=== PATIENT | male | born 1955 | race Caucasian/White ===

== ENCOUNTER 2020-02-09 14:57 | Inpatient (IN) | payer OTHER ==
[~2020-02-09] VITALS: Ht 172.7 cm; Wt 95.5 kg
[2020-02-09 15:10] LABS: Calcium, Ionized (POC) 0.84 mmol/L (1.10-1.46); Chloride (POC) 107 mmol/L (98-108); Creatinine (POC) 1.6 mg/dL (0.8-1.3); Glucose (ISTAT POC) 40 mg/dL (70-99); Hemoglobin (POC) 11.6 g/dL (13.5-17.5); Sodium (POC) 140 mmol/L (135-148); Total CO2 (POC) 11 mmol/L (21-32)
[2020-02-09 15:19] LABS: BASOPHILS ABSOLUTE AUTO 0.05 K/mm3 (0.00-0.23); BASOPHILS PERCENT AUTO 0 % (0-2); EOSINOPHILS ABSOLUTE AUTO 0.02 K/mm3 (0.00-0.68); EOSINOPHILS PERCENT AUTO 0 % (0-6); Hematocrit 32.3 % (37.0-53.0); Hemoglobin 10.4 g/dL (13.5-17.5); IMMATURE GRAN ABSOLUTE AUTO 0.23 K/mm3 (0.00-0.10); IMMATURE GRAN PERCENT AUTO 1 % (0-1); LYMPHOCYTES ABSOLUTE AUTO 0.98 K/mm3 (0.84-5.20); LYMPHOCYTES PERCENT AUTO 5 % (21-46); MONOCYTES ABSOLUTE AUTO 1.44 K/mm3 (0.16-1.47); MONOCYTES PERCENT AUTO 8 % (4-13); Mean Corpuscular HGB 35.4 pg (26.0-34.0); Mean Corpuscular HGB Conc 32.2 g/dL (31.5-36.5); Mean Corpuscular Volume 110 fL (80-100); NEUTROPHILS ABSOLUTE AUTO 15.77 K/mm3 (1.96-9.15); NEUTROPHILS PERCENT AUTO 85 % (41-73); NRBC ABSOLUTE 0.02 K/mm3 (0.00-0.02); NRBC Auto 0.1 /100 WBC (0.0-0.2); Platelet Count 161 K/mm3 (150-400); RDW Standard Deviation 75.4 fL (35.1-46.3); Red Blood Cell Count 2.94 M/mm3 (4.30-5.90); White Blood Cell Count 18.49 K/mm3 (4.00-11.30)
[2020-02-09 15:32] LABS: International Normalized Ratio 3.31; Prothrombin Time Results 33.1 Sec (9.7-11.5)
[2020-02-09 15:38] LABS: Ethanol (Alcohol), Blood, Med <3 mg/dL
[2020-02-09 15:40] LABS: Alanine Aminotransfer (ALT/SGP 173 U/L (12-78); Albumin, Blood 1.5 g/dL (3.4-5.0); Albumin/Globulin Ratio 0.4 (0.8-1.8); Alk Phos 207 U/L (50-136); Anion Gap 23 mmol/L (6-16); Bilirubin, Total 10.5 mg/dL (0.1-1.0); Blood Urea Nitrogen 47 mg/dL (8-24); Bun/Creatinine Ratio 33.1 (12.0-20.0); CO2, Blood 13 mmol/L (21-32); Calcium, Blood 8.1 mg/dL (8.5-10.1); Chloride, Blood 107 mmol/L (98-108); Creatinine, Blood 1.42 mg/dL (0.60-1.20); Globulin, Blood 3.8 g/dL (2.2-4.0); Glomerular Filtration Rate 47 (60-); Sodium, Blood 143 mmol/L (136-145); Total Protein, Blood 5.3 g/dL (6.4-8.2)
[2020-02-09 15:42] LABS: Glucose, Blood 43 mg/dL (70-99)
[2020-02-09 15:56] LABS: Aspartate Aminotrans (AST/SGOT 407 U/L (12-37)
[2020-02-09 15:58] LABS: Source, Urine Voided
[2020-02-09 16:02] LABS: Blood, Urine 1+ (Neg); Glucose Qualitative, Urine Neg (Neg); Ketones, Urine 1+ (Neg); Leukocyte Esterase, Urine 1+ (Neg); Nitrite, Urine Pos (Neg); Protein, Urine 2+ (Neg); Specific Gravity, Urine 1.025 (1.003-1.022); Urobilinogen, Urine 3+ (Normal)
[2020-02-09 16:08] LABS: Appearance, Urine Clear (Clear); Bilirubin, Urine 2+ (Neg); Color, Urine Orange (P-Yellow)
[2020-02-09 16:18] LABS: U Amphetamine Screen DETECTED; U Barbituate Screen Not Detected; U Benzodiazapine Screen Not Detected; U Buprenorphine Screen Not Detected; U Cannabinoids Screen Not Detected; U Cocaine Screen Not Detected; U Methadone Screen Not Detected; U Methamphetamine Screen DETECTED; U Opiates Screen Not Detected; U Oxycodone Screen Not Detected; U Phencyclidine Screen Not Detected; U Propoxyphene Screen Not Detected
[2020-02-09 16:29] LABS: Amorphous Light (0-Heavy); Bacteria Few /hpf; Granular Casts 0-2 /lpf (0); Mucus Light (0-Heavy); Red Blood Cells, Urine Rare /hpf (0-2); Squamous Epithelial Cells Rare /hpf (Few); White Blood Cells, Urine Rare /hpf (0-5)
[2020-02-09 17:22] LABS: Hematocrit 24.5 % (37.0-53.0); Hemoglobin 7.6 g/dL (13.5-17.5)
[2020-02-09 17:56] LABS: Creatine Kinase MB 10.7 ng/mL (0.0-3.6)
[2020-02-09 19:14] LABS: Base Excess Venous -21.2 mmol/L; Bicarbonate Venous 9.4 mmol/L (24.0-30.0); PCO2 Venous 31.6 mmHg (38-42); PO2 Venous 45.9 mmHg (38-42); pH Blood Venous 7.07 (7.34-7.37)
--- NOTE | 2020-02-09 19:31 | NUR ---
PATIENT ARRIVED TO UNIT FROM ER AT 1745. PATIENT RESPONDING TO PAINFUL STIMULI. NOT MAKING ANY PURPOSEFUL MOVEMENTS. SCLERAL EDEMA NOTED. SCLERA JAUNDICED. SKIN JAUNDICED. NO SIGNS OF PAIN NOTED. CORE TEMP OF 94.0 DEGREES FAHRENHEIT. PATIENT ON 2 L NC. CRACKLES NOTED TO R LOWER LUNG LOBES UPON AUSCULTATION; ALL OTHER LUNG LOBES CLEAR. PATIENT IN SR WITH PVCS. HR 80S. SBP 80S TO 120S. SCDS IN PLACE. ABDOMEN SEVERELY DISTENDED, SOFT TO PALPATION. LARGE UMBILICAL HERNIA NOTED. ER STATED THAT PATIENT HAD TARRY STOOL ALL OVER LEGS AND BODY WHEN BROUGHT IN. TEMP PROBE BLUE PLACED IN ER; DRAINING VERY DARK, ORANGE COLORED URINE. EXTREMITIES ARE COOL, MOTTLED, PURPLE IN COLOR. PULSES IN FEET 1+ IN STRENGTH. RADIAL PULSES 2+ IN STRENGTH. SANDOSTATIN INFUSING AT 25 MLS/ HOUR, PROTONIX INFUSING AT 10 MLS/ HOUR, ZOSYN INFUSING. ORDERS PLACED FOR BICARB IN D5. BLOOD SUGAR 60 WHEN PATIENT ARRIVED. 25 MLS OF D50 GIVEN. BLOOD SUGAR INCREASED TO 79. DR. RIVERS NOTIFIED. DOCTOR ORDERED FOR 50 ML OF D50 TO BE GIVEN. PATIENT HAS HAD [address] NEGATIVE. US ABDOMEN TO BE DONE IN MORNING PER DR. RIVERS. DR. RIEVRS, CHARGE, ASSUMING, NURSE, RTS IN ROOM AT THIS TIME. REPORT HAS BEEN GIVING TO ASSUMING NURSE.
[2020-02-09 20:19] LABS: Base Excess Venous -19.1 mmol/L; Bicarbonate Venous 10.2 mmol/L (24.0-30.0); PCO2 Venous 52.8 mmHg (38-42); PO2 Venous 42.9 mmHg (38-42)
[2020-02-09 20:22] LABS: pH Blood Venous 6.98 (7.34-7.37)
[2020-02-09 20:23] LABS: Hematocrit 27.7 % (37.0-53.0); Hemoglobin 8.4 g/dL (13.5-17.5); Mean Platelet Volume 11.2 fL (9.1-12.4); Platelet Count 83 K/mm3 (150-400)
[2020-02-09 20:35] LABS: Calcium, Blood 9.3 mg/dL (8.5-10.1); Magnesium, Blood 2.4 mg/dL (1.6-2.4)
[2020-02-09 20:43] LABS: International Normalized Ratio 2.82
[2020-02-09 20:45] LABS: Prothrombin Time Results 28.5 Sec (9.7-11.5)
[2020-02-09 21:00] LABS: Hematocrit 31.6 % (37.0-53.0); Hemoglobin 10.1 g/dL (13.5-17.5); Mean Platelet Volume 10.8 fL (9.1-12.4); Platelet Count 121 K/mm3 (150-400)
[2020-02-09 21:22] LABS: Hematocrit 37.2 % (37.0-53.0); Hemoglobin 11.8 g/dL (13.5-17.5); Mean Corpuscular HGB 30.8 pg (26.0-34.0); Mean Corpuscular HGB Conc 31.7 g/dL (31.5-36.5); Mean Platelet Volume 10.3 fL (9.1-12.4); NRBC ABSOLUTE 0.04 K/mm3 (0.00-0.02); NRBC Auto 0.5 /100 WBC (0.0-0.2); Platelet Count 86 K/mm3 (150-400); RDW Standard Deviation 61.3 fL (35.1-46.3); Red Blood Cell Count 3.83 M/mm3 (4.30-5.90); White Blood Cell Count 7.95 K/mm3 (4.00-11.30)
[2020-02-09 21:25] LABS: Mean Corpuscular Volume 97 fL (80-100)
[2020-02-09 21:28] LABS: International Normalized Ratio 2.15
[2020-02-09 22:12] LABS: Magnesium, Blood 2.2 mg/dL (1.6-2.4); Troponin I 0.205 ng/mL (0.000-0.040)
--- NOTE | 2020-02-09 22:24 | NUR ---
02/09/202223 JACKIE MURDOCK LATE ENTRY 2035 History, Chart, Medications and Allergies reviewed before start of procedure. 3-LEAD EKG REVIEWED WITH PHYSICIAN PRIOR TO START OF PROCEDURE. VENTILATOR AND RT WITH BAG FOR OXYGENTATION. MONITOR INTACT WITH CONTINUOUS PULSE OXIMETRY AND INTERMITTENT BP.
[2020-02-09 22:25] LABS: Alanine Aminotransfer (ALT/SGP 275 U/L (12-78); Albumin/Globulin Ratio 0.5 (0.8-1.8); Alk Phos 98 U/L (50-136); Anion Gap 20 mmol/L (6-16); Aspartate Aminotrans (AST/SGOT 877 U/L (12-37); Bilirubin, Total 5.2 mg/dL (0.1-1.0); Blood Urea Nitrogen 36 mg/dL (8-24); CO2, Blood 19 mmol/L (21-32); Calcium, Blood 9.3 mg/dL (8.5-10.1); Chloride, Blood 115 mmol/L (98-108); Creatinine, Blood 1.03 mg/dL (0.60-1.20); Glomerular Filtration Rate >60 (60-); Glucose, Blood 202 mg/dL (70-99); Potassium, Blood 3.6 mmol/L (3.5-5.5); Sodium, Blood 154 mmol/L (136-145)
[2020-02-09 22:31] LABS: Base Excess Venous -12.6 mmol/L; PCO2 Venous 58.3 mmHg (38-42); PO2 Venous 41.1 mmHg (38-42); pH Blood Venous 7.08 (7.34-7.37)
[2020-02-09 22:40] LABS: Hematocrit 49.8 % (37.0-53.0); Hemoglobin 15.9 g/dL (13.5-17.5)
--- NOTE | 2020-02-09 23:41 | NUR ---
ASSUMED CARE: PT INTUBATED AFTER SHIFT CHANGE. 1923: 20 OF ETOMIDATE AND 20 OF ROCC GIVEN 1931: PT INTUBATED WITH 7.5 ETT; 27 AT GUM 1949: 1U PRBCS STARTED 1954: LEVOPHED STARTED AND 1U PRBCS DONE 1956: 1 U PRBCS 1957: BICARB PUSH GIVEN 1958: CALCIUM CHLORIDE PUSH GIVEN 1999: BICARB IV PUSH GIVEN [id number]: 1 U PRBCS 2003: 1 U PRBCS, MASSIVE TRANSFUSER BEING USED 2009: 1 U PRBCS 2010: 2G MAG GIVEN IV PUSH: DR RIVERA AT BEDSIDE TO PERFORM EGD. 2012: 1 U PRBCS 2010: LEVOPHED INCREASED TO 30MCG 2015: 1 U PRBCS 2016: FFP GIVEN AND 1 AMP BICARB GIVEN 2019: 1 AMP BICARB GIVEN 2022: CALCIUM CHLORIDE GIVEN 2023: FFP GIVEN 2024: 1 U PRBCS 2027: 1 AMP BICARB IV PUSH 2028: PLASMA GIVEN; DONE AT 2034 2030: BICARB GTT STARTED-WIDE OPEN 2031: 1 AMP BICARB GIVEN 2031: 1 U PRBCS 2032: BICARB IV PUSH GIVEN 2035: 1 U PRBCS 2038: BICARB IV PUSH GIVEN AND 1 U PRBCS 2044: 1 U PRBCS AND EPI STARTED AT 5MCG 2046: 1 U PRBCS AND 1 AMP CALCIUM CHLORIDE GIVEN 2048: 1 U PRBCS 2049: VASOPRESSIN STARTED 2050: 1 U PRBCS 2052: 1 U PRBCS 2054: 1 U PRBCS 2101: 1 U PRBCS 2103: 1 U PRBCS 2105: EPI AT 5MCG 2112: 2 AMP CALCIUM CHLORIDE GIVEN 2115: 2L NS GIVEN 2116: 2G MAG GIVEN 2123: EPI TITRATED DOWN TO 2MCG 2126: 1 U PRBCS GIVEN AND 2 AMP CALCIUM CHLORIDE GIVEN 2131: 1 U PRBCS GIVEN 2134: 1 U PRBCS 2136: 2 BAG OF BICARB STARTED WIDE OPEN 2140: EPI ON STANDBY 2142: PROPOFOL STARTED AT 20MCG 2148: LEVOPHED AT 20MCG 2151: PROPOFOL INCREASED TO 35MCG 2200: VASOPRESSIN ON STANDBY PT UNRESPONSIVE. ONCE PT WAS INTUBATED, CONTINUOUS BRIGHT RED BLOOD PER ETT AND AROUND ETT POURING OUT. BETWEEN RT SUCTION AND EGD PT EBL ABOUT 4L. DR GOODEN PLACED CL IN R FEM. ER WAS NOTIFIED TO BRING MASSIVE TRANSFUSER; ER ASSISTED WITH MASSIVE TRANSFUSION. MULTIPLE BANDS AND 2 CLIP TO ULCERS IN STOMACH DEPLOYED BY DR. RIVERA. HEMOSTASIS ACHIEVED. SBP IS 80-100S. HR TACHY IN 100S. SPO2 >90%. BLUE IN PLACE DRAINING DARK YELLOW URINE. PT HAS SIGNIFICANT SCLERAL EDEMA. ABD IS FIRM, TAUGHT, AND DISTENDED. PT HAS UMBILICAL HERNIA. CURRENTLY INFUSING IS SANDOSTATIN AT 25, SODIUM BICARB AT 200MLS/HR, LEVOPHED AT 15MCG, PROPOFOL AT 35MCG, VANCO, ZOSYN, KCL. VASOPRESSIN AND EPI ON STANDBY. PT HAD A LARGE ESOPHAGEAL ULCERS THAT HAD CLOTTED OFF. BLEED WAS FOUND IN STOMACH. 6 BANDS AND 2 CLIPS PLACED. PT HAS 3 PIVS AND CL IN R FEM. SODIUM BICARB INFUSING AT 200MLS/HR, SANDOSTATIN AT 25, LEVOPHED AT 15MCG, PROPOFOL AT 35MCG, VANCO AND ZOSYN.
[2020-02-10 01:25] LABS: PCO2 Arterial 21.1 mmHg (35-45); PO2 Arterial 126 mmHg (80-100); pH Blood Arterial 7.25 (7.35-7.45)
[2020-02-10 04:05] LABS: Base Excess Venous -1.2 mmol/L; Bicarbonate Venous 23.1 mmol/L (24.0-30.0); PO2 Venous 32.9 mmHg (38-42); pH Blood Venous 7.42 (7.34-7.37)
[2020-02-10 04:11] LABS: Hematocrit 50.3 % (37.0-53.0); Hemoglobin 17.2 g/dL (13.5-17.5); LYMPHOCYTES ABSOLUTE AUTO 1.03 K/mm3 (0.84-5.20); LYMPHOCYTES PERCENT AUTO 8 % (21-46); MONOCYTES ABSOLUTE AUTO 1.48 K/mm3 (0.16-1.47); MONOCYTES PERCENT AUTO 12 % (4-13); Mean Corpuscular HGB 29.9 pg (26.0-34.0); Mean Corpuscular HGB Conc 34.2 g/dL (31.5-36.5); Mean Platelet Volume 10.7 fL (9.1-12.4); NRBC ABSOLUTE 0.34 K/mm3 (0.00-0.02); NRBC Auto 2.7 /100 WBC (0.0-0.2); Platelet Count 72 K/mm3 (150-400); RDW Coefficient Variation 19.7 % (11.7-14.2); RDW Standard Deviation 53.7 fL (35.1-46.3); Red Blood Cell Count 5.76 M/mm3 (4.30-5.90); White Blood Cell Count 12.79 K/mm3 (4.00-11.30)
[2020-02-10 04:23] LABS: BASOPHILS ABSOLUTE AUTO 0.06 K/mm3 (0.00-0.23); BASOPHILS PERCENT AUTO 1 % (0-2); EOSINOPHILS ABSOLUTE AUTO 0.01 K/mm3 (0.00-0.68); EOSINOPHILS PERCENT AUTO 0 % (0-6); IMMATURE GRAN ABSOLUTE AUTO 0.13 K/mm3 (0.00-0.10); IMMATURE GRAN PERCENT AUTO 1 % (0-1); Mean Corpuscular Volume 87 fL (80-100); NEUTROPHILS ABSOLUTE AUTO 10.08 K/mm3 (1.96-9.15); NEUTROPHILS PERCENT AUTO 79 % (41-73)
[2020-02-10 04:24] LABS: International Normalized Ratio 2.97
[2020-02-10 04:27] LABS: Prothrombin Time Results 29.9 Sec (9.7-11.5)
[2020-02-10 04:53] LABS: Magnesium, Blood 2.5 mg/dL (1.6-2.4)
[2020-02-10 04:55] LABS: Alanine Aminotransfer (ALT/SGP 2054 U/L (12-78); Albumin, Blood 1.5 g/dL (3.4-5.0); Albumin/Globulin Ratio 0.6 (0.8-1.8); Alk Phos 245 U/L (50-136); Anion Gap 16 mmol/L (6-16); Aspartate Aminotrans (AST/SGOT 9044 U/L (12-37); Bilirubin, Total 12.8 mg/dL (0.1-1.0); Blood Urea Nitrogen 42 mg/dL (8-24); Bun/Creatinine Ratio 26.2 (12.0-20.0); CO2, Blood 24 mmol/L (21-32); Calcium, Blood 10.6 mg/dL (8.5-10.1); Chloride, Blood 105 mmol/L (98-108); Globulin, Blood 2.7 g/dL (2.2-4.0); Glomerular Filtration Rate 41 (60-); Glucose, Blood 171 mg/dL (70-99); Potassium, Blood 4.3 mmol/L (3.5-5.5); Sodium, Blood 145 mmol/L (136-145); Total Protein, Blood 4.2 g/dL (6.4-8.2); Troponin I 0.784 ng/mL (0.000-0.040); Vancomycin, Random 18.8 ug/mL
[2020-02-10 04:59] LABS: Phosphorus, Blood 3.8 mg/dL (2.5-4.9)
--- NOTE | 2020-02-10 06:22 | NUR ---
SHIFT SUMMARY: PT REMAINS UNRESPONSIVE TO ANY STIMULI. SIGNIFICANT SCLERAL EDEMA. PT IS JAUNDICED. INITIALLY TEMP WAS 93.4. CURRENTLY FEBRILE AT 100. LUNG SOUDNS WHEEZY. ON VENT SPON 500,PEEP 5, FIO2 40%. IN SR WITH PVCS. PT INITALLY HAD MULTIPLE RUNS OF UNSUSTAINED V TACH. SBP IN THE 110S, HR IN THE 90S. ON LEVOPHED AT 30MCG AND VASOPRESSIN. PT HAD SEVERE GI BLEED AND LOST AN EST 4L OF BLOOD. RECEIVED 18U PRBCS, 4 FFP, 2 PLASMA. PT HAD ESOPHAGEAL ULCERS THAT WERE CLOTTED OVER. BLEED WAS FOUND IN STOMACH. DR RIVERA PLACED 6 BANDS AND 2 CLIPS. PT STILL HAS SOME RESIDUAL BLEEDING FROM ORAL CAVITY. ABOUT ANOTHER 250MLS LOST THROUGH ORAL SUCTION. H&H CURRENTLY STABLE. ABD IS SEVERELY DISTENDED AND TAUGHT. PT HAS LARGE UMBILICAL HERNIA. BLUE IN PLACE NOW DRAINING SMALL AMTS OF DARK URINE. PT HANDS ARE DUSKY. BLE MOTTLED UP TO THIGHS. 3 PIV IN RFA, RAC, LFA. CL IN R GROIN. FLUIDS INFUSING: PROPOFOL 35MCG, SANDOSTATIN 25MLS, LEVOPHED AT 30MCG, AND VASOPRESSIN. WILL PASS REPORT TO ONCOMING SHIFT
--- NOTE | 2020-02-10 08:30 | NUR ---
INITIAL ASSESSMENT PATIENT INTUBATED AND SEDATED. PATIENT UNRESPONSIVE. NO COUGH, GAG, SWALLOW REFLEXES NOTED. PUPILS REACT BRISKLY TO LIGHT. SCLERA EDEMA AND JAUNDICE NOTED. PATIENT HAS TEMP OF 99.4 DEGREES FAHRENHEIT. TEMP PROBE BLUE NOT WORKING. PATIENT ON SPONTANEOUS PS 5/5, 40% FIO2. LUNGS CLEAR IN UPPER LOBES, DIMINISHED IN LOWER LOBES. COPIOUS AMOUNT OF BLOODY ORAL SECRETIONS NOTED. PATIENT IN SR WITH PVCS. HR 80S TO 100. 1+ EDEMA NOTED TO ABDOMEN, THIGHS AND BLES. RADIAL PULSES 2+ IN STRENGTH AND PULSES IN FEET 1+ IN STRENGTH. ABDOMEN SEVERELY DISTENDED, FIRM, TIGHT, WITH TYMPANIC BOWEL SOUNDS NOTED. LARGE UMBILICAL HERNIA NOTED. ASCITES NOTED. NO OG. BLUE IN PLACE DRAINING DARK ORANGE/ TEA COLORED URINE; CLOUDY WITH SEDIMENT. BRUISES TO R HIP AND BUES. SCABS TO BLES. SKIN JAUNDICED. MOTTLING TO BLES. NS TKO. SANDOSTATIN AT 25 MLS/ HOUR. PROPOFOL AT 30 MCG/ KG/ MINUTE. LEVOPHED AT 28 MCG/ MINUTE. VASOPRESSIN AT 0.04 UNITS/ MINUTE. PATIENT RECEIVING ZOSYN, VANCO AND FLAGYL. NO SIGNS OF PAIN AT THIS TIME. BED LOW, CALL LIGHT IN REACH. WILL CONTINUE TO MONITOR PATIENT FREQUENTLY THROUGHOUT SHIFT.
--- NOTE | 2020-02-10 09:00 | NUR ---
DR. RIVERS AND DR. RIVERA IN TO SEE PATIENT THIS AM. DR. RIVERS INFORMED OF RUNS OF VTACH DURING NIGHT AND THAT PATIENT NOW IN SR WITH PVCS. INFORMED THAT PATIENT HAD 40 MEQ KCL REPLACEMENT THIS AM. INFORMED THAT DR. RIVERA DOES NOT WANT OG AT THIS TIME. INFORMED THAT LEVOPHED INFUSING AT 28 MCG/ MINUTE AND VASOPRESSIN INFUSING AT 0.04 UNITS/ MINUTE.
[2020-02-10 11:29] LABS: Hematocrit 47.3 % (37.0-53.0); Hemoglobin 16.5 g/dL (13.5-17.5)
--- NOTE | 2020-02-10 12:00 | NUR ---
NO CHANGE IN NEURO STATUS. TEMP OF 99.3 DEGREES FAHRENHEIT. HR 70S TO 80S. BP STABLE ON LEVOPHED AT 27 MCG/ MINUTE AND VASOPRESSIN AT 0.04 UNITS/ MINUTE. PROPOFOL AT 35 MCG/ KG/ MINUTE. PATIENT ON AC 20, TV 500, PEEP 5 AND 40% FIO2. NO SIGNS OF PAIN NOTED AT THIS TIME.
--- NOTE | 2020-02-10 12:10 | NUR ---
Echocardiogram performed.
--- NOTE | 2020-02-10 12:46 | NUR ---
BLOOD SUGAR OF 29. DR. RIVERS INFORMED. ORDER FOR 2 AMPS D50 TO BE GIVEN.
[2020-02-10 12:53] LABS: Prothrombin Time Results 48.9 Sec (9.7-11.5)
[2020-02-10 12:57] LABS: International Normalized Ratio 5.01
[2020-02-10 13:17] LABS: Automated BF WBC Count 1.382 K/mm3 (0-999); Body Fluid WBC Count 1382 /mm3 (0-999)
[2020-02-10 13:34] LABS: Albumin, Body Fluid 0.1 g/dL; Glucose, Body Fluid 93 mg/dL; Lactate Dehydrogenase, Body Fl 539 U/L; Protein, Body Fluid 0.6 g/dL
[2020-02-10 13:39] LABS: pH, Body Fluid 7.9
--- NOTE | 2020-02-10 14:10 | NUR ---
PT HYPOTENSIVE W MAP IN 50'S. DR RIVERS AT BEDSIDE. 1 LITER NS BOLUS STARTED. EPI GTT STARTED AT 5MCG. RT AT BEDSIDE. BS 98 W D10 AT 100CC/HR. PT SATS 70-80%, DR RIVERS INSTRUCTED RT TO BAG W AMBU; SATS INCREASED INTO LOW 90'S. PT PLACED BACK ON VENT AT 1412. PEEP INCREASED TO 8, FIO2 100%.
--- NOTE | 2020-02-10 14:23 | NUR ---
PEEP INCREASED TO 10. EPI DECREASED TO 3MCG. DOUBLE STRENGTH LEVOPHED STARTED AT 30MCG. ETT PULLED OUT 1CM, NOW 26CM AT LIP-PER DR RIVERS. ROCURONIUM 20MG IV GIVEN PER DR RIVERS; TO EVALUATE IF PARALYTIC WOULD INCREASE SATS/ASSIST VENT COMPLIANCE. PT ALSO PLACED IN REVERSE TRENDELENBURG TO ASSIST LUNG SPACE BY MOVING ABD AWAY FROM DIAPHRAM. IF SATS CONT TO DROP PT TO BE PLACED ON RIGHT SIDE. LARGE AMT OF DARK/OLD BLOOD SX'S FROM BACK OF THROAT AFTER ETT MOVED.
[2020-02-10 14:29] LABS: RBC Count, Body Fluid 667 /mm3 (0-0)
[2020-02-10 14:49] LABS: Appearance, Body Fluid Hazy (Clear); Color, Body Fluid Yellow (None-Yellow); Total Cell Count, Body Fluid 100
[2020-02-10 15:42] LABS: Hematocrit 25.3 % (37.0-53.0); Hemoglobin 8.2 g/dL (13.5-17.5)
--- NOTE | 2020-02-10 15:56 | NUR ---
DR. RIVERS INFORMED SHORT TIME AGO ABOUT FIRST 500 CC NS BOLUS RESULT. INFORMED THAT SBP 80S, MAP 59. INFORMED THAT PATIENT PEEP AT 12 AND 100% FIO2. INFORMED THAT HEMOGLOBIN 8.2 FROM 16. DOCTOR INSTRUCTED TO START ANOTHER 500 CC NS BOLUS AND TO CALL DR. RIVERA. DR. RIVERA CALLED AND CAME TO UNIT. INFORMED THAT PATIENT HYPOTENSIVE, PRESSORS BEING INCREASED, INCREASED 02 NEEDS, DROP IN HEMOGLOBIN. NO SIGNS OF BLEEDING EXCEPT SOME BLOODY ORAL SECRETIONS. INFORMED THAT DR. RIVERS ORDERING TO GIVE 2 UNITS OF BLOOD.
--- NOTE | 2020-02-10 16:00 | NUR ---
NO CHANGE IN NEURO STATUS. PATIENT REMAINS ON PROPOFOL AT 35 MCG/ KG/ MINUTE. TEMP OF 99.9 DEGREES FAHRENHEIT. PATIENT ON AC 20, TV 500, PEEP 12 AND 100% FIO2 O2 SATS HAVE BEEN DECREASING. HR IN THE 90S. EPINEPHRINE INFUSING AT 5 MCG/ MINUTE, LEVOPHED AT 30 MCG/ MINUTE, VASOPRESSIN AT 0.04 UNITS/ MINUTE. NS INFUSING AT 100 MLS/ HOUR, D10 AT 100 MLS/ HOUR. SANDOSTATIN AT 25 MLS/ HOUR.
[2020-02-10 16:07] LABS: Magnesium, Blood 1.5 mg/dL (1.6-2.4)
[2020-02-10 16:20] LABS: Albumin, Blood 0.6 g/dL (3.4-5.0); Albumin/Globulin Ratio 0.5 (0.8-1.8); Bilirubin, Total 6.3 mg/dL (0.1-1.0); Bun/Creatinine Ratio 20.7 (12.0-20.0); Calcium, Blood 5.1 mg/dL (8.5-10.1); Creatinine, Blood 1.4 mg/dL (0.60-1.20); Globulin, Blood 1.3 g/dL (2.2-4.0); Potassium, Blood 2.9 mmol/L (3.5-5.5); Total Protein, Blood 1.9 g/dL (6.4-8.2)
--- NOTE | 2020-02-10 16:37 | NUR ---
DR. RIVERA IN ROOM SCOPING PATIENT. DR. RIVERS INFORMED OF LACTIC 6.9, CALCIUM 5.1, MAG 1.5, POTASSIUM 2.9. DOCTOR PLACING ORDERS NOW.
[2020-02-10 16:44] LABS: Base Excess Venous -8.4 mmol/L; Bicarbonate Venous 17.7 mmol/L (24.0-30.0); PCO2 Venous 43.1 mmHg (38-42); PO2 Venous 56.6 mmHg (38-42); pH Blood Venous 7.25 (7.34-7.37)
[2020-02-10 17:14] LABS: International Normalized Ratio 6.7
[2020-02-10 17:15] LABS: Prothrombin Time Results 64.4 Sec (9.7-11.5)
--- NOTE | 2020-02-10 17:34 | NUR ---
PATIENT BEING TAKEN TO CT BY CHARGE NURSE, RT, FOOD SAFETY OFFICER, NURSING SERVICES MANAGER.
--- NOTE | 2020-02-10 18:20 | NUR ---
LATE ENTRY 1630 PREOPING PT IN ICU. History, Chart, Medications and Allergies reviewed before start of procedure. Lungs clear T/O to Auscultation. LOAN OPERATIONS MANAGER STATES NPO STATUS.
--- NOTE | 2020-02-10 18:20 | NUR ---
02/10/20 1820 JACKIE MURDOCK LATE ENTRY 2144 History, Chart, Medications and Allergies reviewed before start of procedure. O2 VIA N/C INTACT THROUGHOUT SEDATION/PROCEDURE. 3-LEAD EKG REVIEWED WITH PHYSICIAN PRIOR TO START OF PROCEDURE. MONITOR INTACT WITH CONTINUOUS PULSE OXIMETRY AND INTERMITTENT BP. DEEPPRO PT ON VENTILATOR.
--- NOTE | 2020-02-10 19:03 | NUR ---
MULTIPLE ATTEMPTS TO CONTACT FAMILY BUT TO NO AVAIL.
--- NOTE | 2020-02-10 20:00 | NUR ---
ASSUMED CARE: PT UNRESPONSIVE. R PUPIL IS REACTIVE, L PUPIL SLUGGISH. UNEQUAL IN SIZE. NO CORNEAL REFLEXES. IN SR WITH PVCS AND PACS. HR IN THE 70-80. SBP 70-90. ON VENT AC SETTINGS 20/500/PEEP 12/FIO2 100%. SPO2 MOSTLY <90%. PER VBG PT IS ACIDOTIC, PH 7.24. PT IS HAVING LARGE AMTS OF BLOOD OOZING FROM MOUTH. ABD IS SEVERELY DISTENDED, TAUGHT, TYMPANIC. PT HAS A PICC TO ERIC AND CL TO R GROIN. EPI IS AT 10MCG, VASOPRESSIN 0.04, LEVOPHED AT 30MCG, SANDOSTATIN AT 25MLS/HR, BICARB AT 150MLS/HR, NS AT 100MLS/HR, PROPOFOL AT 10MCG. PT HAD MAG, CALCIUM, AND POTASSIUM REPLACED DURING DAY SHIFT. BLUE IN PLACE WITH VERY MINIMAL URINE OUTPUT. UNABLE TO LOCATE FAMILY AT THIS TIME.
--- NOTE | 2020-02-10 20:01 | NUR ---
SHIFT SUMMARY PATIENT REMAINED INTUBATED AND ON SEDATION DURING SHIFT. PATIENT REMAINED UNRESPONSIVE. PATIENT HAD TMAX OF 100.5 DEGREES FAHRENHEIT DURING SHIFT. NO SIGNS OF PAIN NOTED. O2 NEEDS INCREASED DURING SHIFT. PATIENT INCREASED FROM PS 5/5, 40% TO AC 20, TV 500, PEEP 12 AND 100% FIO2. PATIENT CONTINUED TO HAVE BLOODY ORAL SECRETIONS. PATIENT REMAINED IN SR WITH PVCS. PATIENT BECAME MORE HYPOTENSIVE DURING SHIFT. EPINEPHRINE STARTED, PATIENT RECEIVED NS BOLUSES. ABDOMEN BECAME MUCH MORE DISTENDED AND FIRM. DR. RIVERS PERFORMED PARACENTESIS AND TOOK OFF [address] RIVERA SCOPED PATIENT AFTER HEMOGLOBIN DROPPED FROM AROUND 16 TO 8. BLUE ONLY DRAINED 90 MLS OF DARK, CLOUDY, TEA COLORED URINE WITH SEDIMENT. PATIENT GIVEN POTASSIUM, MAGNESIUM, CALCIUM, VITAMIN K, 2 UNITS PRBCS, 1 UNIT PLASMA AND A UNIT OF CRYOPRECIPITATE. PATIENT ALSO GIVEN 2 AMPS D50 FOR LOW BLOOD SUGAR OF 29; BLOOD SUGAR CAME IMMEDIATELY UP. BLOOD SUGAR CHANGED TO Q1H CHECKS. D10 STARTED BUT LATER CHANGED TO SODIUM BICARB IN D10. SODIUM BICARB INFUSING AT 150 MLS/ HOUR, PROPOFOL INFUSING AT 10 MCG/ KG/ MINUTE, EPINEPHRINE INFUSING AT 10 MCG/ MINUTE, LEVOPHED INFUSING AT 30 MCG/ MINUTE, NS INFUSING AT 100 MLS/ HOUR, SANDOSTATIN INFUSING AT 25 MLS/ HOUR, VASOPRESSIN INFUSING AT 0.04 UNITS/ MINUTE, AND NS TKO. PATIENT RECEIVED PICC TODAY. PATIENT HAS NO SIGNS OF PAIN AT THIS TIME. BED LOW. SULFUR CHLORIDE OPERATOR NURSE GIVEN REPORT SHORT TIME AGO.
[2020-02-10 20:06] LABS: PCO2 Venous 41.7 mmHg (38-42); pH Blood Venous 7.24 (7.34-7.37)
[2020-02-10 20:07] LABS: Base Excess Venous -9.4 mmol/L; Bicarbonate Venous 16.8 mmol/L (24.0-30.0); PO2 Venous 43.1 mmHg (38-42)
[2020-02-10 21:54] LABS: Hematocrit 37.7 % (37.0-53.0); Hemoglobin 12.3 g/dL (13.5-17.5)
[2020-02-10 22:18] LABS: Magnesium, Blood 2.6 mg/dL (1.6-2.4)
[2020-02-10 22:44] LABS: Albumin/Globulin Ratio 0.6 (0.8-1.8); Creatinine, Blood 2.68 mg/dL (0.60-1.20); Globulin, Blood 1.8 g/dL (2.2-4.0); Total Protein, Blood 2.8 g/dL (6.4-8.2)
[2020-02-10 22:46] LABS: Calcium, Blood 9.1 mg/dL (8.5-10.1)
--- NOTE | 2020-02-10 23:09 | NUR ---
DONOR LINE CALLED. SPOKE WITH ZEFERINO AJ. DONOR LINE HAS SIGNED OFF. ZEFERINO WAS ABLE TO LOOK UP [facility] RECORDS ON PT. PT HAS DX OF HEPATOCELLULAR CARCINOMA. D/T THIS PT IS NOT A CANDIDATE FOR [employer]GAN DONATION. WILL CALL DONOR LINE BACK AFTER TIME OF TO DISCUSS EYE/TISSUE DONATION.
--- NOTE | 2020-02-10 23:16 | NUR ---
SPOKE WITH DR RIVERS TO GIVE UPDATE ON PT CONDITION. SPO2 HAS DROPPED TO HIGH 70S- MID 80S. EPINEPHRINE IS AT 20MCG, LEVOPHED IS AT 30MCG, VASOPRESSIN IS AT 0.04. ORDERS RECEIVED TO INCREASE PEEP UP TO 18, LEAVE EPI AT 20MCG-DO NOT INCREASE. GOAL IS TO KEEP PT COMFORTABLE POSSIBLE.
[2020-02-11 03:35] LABS: Hematocrit 36.5 % (37.0-53.0); Hemoglobin 11.7 g/dL (13.5-17.5); Mean Corpuscular HGB 30.5 pg (26.0-34.0); Mean Corpuscular HGB Conc 32.1 g/dL (31.5-36.5); Mean Platelet Volume 12.2 fL (9.1-12.4); NRBC ABSOLUTE 3.81 K/mm3 (0.00-0.02); NRBC Auto 17.2 /100 WBC (0.0-0.2); RDW Coefficient Variation 20.3 % (11.7-14.2); RDW Standard Deviation 66.2 fL (35.1-46.3); Red Blood Cell Count 3.83 M/mm3 (4.30-5.90); White Blood Cell Count 22.09 K/mm3 (4.00-11.30)
[2020-02-11 03:38] LABS: Mean Corpuscular Volume 95 fL (80-100)
[2020-02-11 03:39] LABS: Platelet Count 33 K/mm3 (150-400)
[2020-02-11 04:03] LABS: Albumin, Blood 0.9 g/dL (3.4-5.0); Albumin/Globulin Ratio 0.5 (0.8-1.8); Alk Phos 423 U/L (50-136); Anion Gap 17 mmol/L (6-16); Bilirubin, Total 9.4 mg/dL (0.1-1.0); Blood Urea Nitrogen 41 mg/dL (8-24); Bun/Creatinine Ratio 13.9 (12.0-20.0); CO2, Blood 18 mmol/L (21-32); Calcium, Blood 8.1 mg/dL (8.5-10.1); Chloride, Blood 100 mmol/L (98-108); Creatinine, Blood 2.95 mg/dL (0.60-1.20); Globulin, Blood 1.8 g/dL (2.2-4.0); Glomerular Filtration Rate 23 (60-); Glucose, Blood 143 mg/dL (70-99); Magnesium, Blood 2.8 mg/dL (1.6-2.4); Phosphorus, Blood 7.7 mg/dL (2.5-4.9); Potassium, Blood 5.4 mmol/L (3.5-5.5); Sodium, Blood 135 mmol/L (136-145); Total Protein, Blood 2.7 g/dL (6.4-8.2); Vancomycin, Random 19.9 ug/mL
[2020-02-11 04:22] LABS: Alanine Aminotransfer (ALT/SGP 2710 U/L (12-78); Aspartate Aminotrans (AST/SGOT 12091 U/L (12-37)
[2020-02-11 04:33] LABS: Prothrombin Time Results 65.6 Sec (9.7-11.5)
[2020-02-11 04:34] LABS: International Normalized Ratio 11.35
[2020-02-11 05:50] LABS: Base Excess Venous -14.9 mmol/L; Bicarbonate Venous 12.3 mmol/L (24.0-30.0); PCO2 Venous 65.6 mmHg (38-42); PO2 Venous 36.4 mmHg (38-42); pH Blood Venous 7.01 (7.34-7.37)
[2020-02-11 06:13] LABS: BAND PERCENT MAN 37 % (0-8); BASOPHILS PERCENT MAN 0 % (0-2); EOSINOPHILS PERCENT MAN 0 % (0-6); LYMPHOCYTES % ATYPICAL MANUAL 3 % (0-0); LYMPHOCYTES ABSOLUTE MAN 1.98 K/mm3 (0.84-5.20); LYMPHOCYTES PERCENT MAN 6 % (21-46); METAMYELOCYTE ABSOLUTE MAN 0.44 K/mm3 (0.00-0.00); METAMYELOCYTE PERCENT MAN 2 % (0-0); MONOCYTES ABSOLUTE MAN 1.98 K/mm3 (0.16-1.47); MONOCYTES PERCENT MAN 9 % (4-13); MYELOCYTE ABSOLUTE MAN 0.88 K/mm3 (0.00-0.00); MYELOCYTE PERCENT MAN 4 % (0-0); NEUTROPHILS ABSOLUTE MAN 16.78 K/mm3 (1.96-9.15); SEG NEUTROPHILS PERCENT MAN 39 % (41-73); TOTAL CELLS COUNTED 100
--- NOTE | 2020-02-11 07:37 | NUR ---
SHIFT SUMMARY: PT REMAINS UNRESPONSIVE. NO CORNEAL REFLEXES. NO PURPOSEFUL MOVEMENTS. SBP AND HR CONTINUE TO DECLINE. LEVOPHED, VASO, EPI MAXED OUT. NO ORDERS RECEIVED TO INCREASE EPI BEYOND 20MCG. ON VENT AC SETTINGS 20/500/PEEP 16 (CAN GO UP TO 18)/FIO2 100%. UNSTABLE SAT READINGS. VBG VALUES DECREASING (PH IS 7.09). MULTIPLE SPO2 SITES ATTEMTPED. ABD AND HERNIA INCREASING IN DISTENSION. PUNCTURE SITE FROM PARENCENTESIS IS WEEPING CONTINUOUSLY ALONG WITH CL IN R GROIN AND LEFT THIGH. INCREASINGLY MORE MOTTLED. MOTTLING EXTENDS TO SCROTUM THAT IS ALSO EDEMATOUS, BACK, AND EARS. PT CONTINUES TO HAVE LARGE AMOUNTS OF BLOOD OUT OF ORALCAVITY. ABOUT 500MLS LOST. PICC LINE DSG CHANGED BUT CONTINUES TO SLIGHTLY BLEED. CL DSG CHANGED DUE TO WEEPING SEROSANGIOUNESS FLUID. CONTINUES TO WEEP PT ALSO APPEARS MORE JAUNDICED. DURING ONE ORAL SUCTION A GASTRIC BAND WAS FOUND IN PTS MOUTH. ALL DRIPS REMAIN UNCHANGED. STILL UNABLE TO LOCATE FAMILY. PT HAD 2 BMS THAT WERE BALCK AND RED AND HAD THE CONSISTENCY OF JELLY. WILL PASS REPORT TO ONCIMING RN
--- NOTE | 2020-02-11 09:35 | NUR ---
CARE ASSUMED ASSESSMENT COMPLETED. PT NON-RESPONSIVE, NO GAG/COUGH/SWALLOW REFLEXES NOTED. PROPOFOL GTT 10MCG. PUPILS DILATED WITH SLUGGISH REACTION. HR 60'S SINUS, MAP 50'S WITH LEVO 30MCG, EPI 20MCG, VASO 0.4U. LS CLEAR, SCANT BLOODY SECRETIONS FROM ETT. VENT AC 20, Vt 500, PEEP 18, FIO2 100%, UNABLE TO GET ACCURATE SPO2 D/T POOR PERFUSION. NO PERIPHERAL PULSES PRESENT, CAROTID PULSES PRESENT, FEMORAL PULSES PRESENT BY DOPPLER ONLY. DIFFUSE MOTTLING PRESENT. ABD SEVERELY DISTENDED AND SHINY, NO OGT. BT PRESENT, LARGE UMBILLICAL HERNIA PROTRUDING. ANASARCA PRESENT, BLUE IN PLACE WITH SCANT DARK BROWN URINE. ABX INFUSING PER ORDERS, CBG 140. DR. WHITTINGTON IN TO ASSESS, NO NEW ORDERS AT THIS TIME.
[2020-02-11 10:07] LABS: HBSAG SCREEN Negative (Negative); HEP A AB, IGM Negative (Negative); HEP B CORE AB, TOT Negative (Negative); HEP C VIRUS AB >11.0 (0.0-0.9)
--- NOTE | 2020-02-11 10:38 | NUR ---
UPDATE DR. RIVERA CONSULTED REGARDING OGT, TUBE TO REMAIN OUT D/T BLEEDING.
--- NOTE | 2020-02-11 14:24 | NUR ---
EXPIRATION NOTE PT CONTINUES TO BLEED FROM MOUTH, PENIS, AND ALL PUNCTURE SITES, REMAINS UNRESPONSIVE WITH MINIMAL PUPILLARY REACTION, NEURO STATUS UNCHANGED. ABD DISTENSION AND SCROTAL SWELLING APPEAR TO BE INCREASING, PT MOTTLED DIFFUSELY. UNABLE TO OBTAIN SPO2 READING, BP'S WITH MAP'S 50'S, HR 60'S. DR. ROCHA IN TO SEE PATIENT, NEW ORDERS FOR COMFORT MEASURES. FENTANYL ADMINISTERED, PASTORAL CARE GABE AT BEDSIDE. IV GTT'S STOPPED AND VENT SHUT OFF AT 1310. TIME OF 1314. PRIMARY AND CONSULTING DOCTORS NOTIFIED, DONOR LINE NOTIFIED, [facility] CALLED. BLUE AND ETT REMOVED. UNABLE TO IDENTIFY AND REACH FAMILY DESPITE ONGOING EFFORTS OF MULTIPLE STAFF MEMBERS.
--- NOTE | 2020-02-11 16:17 | NUR ---
TO [facility] AT 1547 WITH BELONGINGS.
--- NOTE | 2020-02-11 16:42 | NUR ---
Spiritual care note: Present at bedside as pt passed. Held his hand and provided loving presence. Later, recieved T/C from Radames's friend, Bettie Maximiliano [phone]. Informed her of Radames's passing. She was tearful but not surprised. She told me they met at a "storage unit" and became friends. She did not know of any family or other friends.
== END 2020-02-11 13:14 | DRG 326 ==
LOC: ER 14:57 → EDBD 17:30 → ICUW 17:30
PROVIDERS: Emergency Medicine; Internal Medicine Gastroenterology; Internal Medicine Pulmonary Disease; ADMIT Internal Medicine
PROC: 06HY33Z Insertion of Infusion Device into Lower Vein, Percutaneous Approach (ICD-10-PCS; 2020-02-09)
PROC: 06L38CZ Occlusion of Esophageal Vein with Extraluminal Device, Via Natural or Artificial Opening Endoscopic (ICD-10-PCS; 2020-02-09)
PROC: 30233R1 Transfusion of Nonautologous Platelets into Peripheral Vein, Percutaneous Approach (ICD-10-PCS; 2020-02-09)
PROC: 30233N1 Transfusion of Nonautologous Red Blood Cells into Peripheral Vein, Percutaneous Approach (ICD-10-PCS; 2020-02-09)
PROC: 3E0G8GC Introduction of Other Therapeutic Substance into Upper GI, Via Natural or Artificial Opening Endoscopic (ICD-10-PCS; 2020-02-09)
PROC: 3E043XZ Introduction of Vasopressor into Central Vein, Percutaneous Approach (ICD-10-PCS; 2020-02-09)
PROC: 0BH18EZ Insertion of Endotracheal Airway into Trachea, Via Natural or Artificial Opening Endoscopic (ICD-10-PCS; 2020-02-09)
PROC: 5A1945Z Respiratory Ventilation, 24-96 Consecutive Hours (ICD-10-PCS; 2020-02-09)
PROC: 30233K1 Transfusion of Nonautologous Frozen Plasma into Peripheral Vein, Percutaneous Approach (ICD-10-PCS; principal; 2020-02-09 20:30)
PROC: 0D968ZZ Drainage of Stomach, Via Natural or Artificial Opening Endoscopic (ICD-10-PCS; 2020-02-09 20:30)
PROC: 0W9G3ZZ Drainage of Peritoneal Cavity, Percutaneous Approach (ICD-10-PCS; 2020-02-10)
PROC: 3E0G8GC Introduction of Other Therapeutic Substance into Upper GI, Via Natural or Artificial Opening Endoscopic (ICD-10-PCS; 2020-02-10)
PROC: 0DC98ZZ Extirpation of Matter from Duodenum, Via Natural or Artificial Opening Endoscopic (ICD-10-PCS; 2020-02-10)
DX: I85.01 Esophageal varices with bleeding (principal); J96.01 Acute respiratory failure with hypoxia; K72.00 Acute and subacute hepatic failure without coma; I21.A1 Myocardial infarction type 2; D65 Disseminated intravascular coagulation [defibrination syndrome]; E87.2 Acidosis; E72.20 Disorder of urea cycle metabolism, unspecified; R18.8 Other ascites; Z51.5 Encounter for palliative care; M62.82 Rhabdomyolysis; C22.0 Liver cell carcinoma; Z66 Do not resuscitate; Z20.828 Contact with and (suspected) exposure to other viral communicable diseases; E16.2 Hypoglycemia, unspecified; R57.8 Other shock; K29.60 Other gastritis without bleeding; K72.90 Hepatic failure, unspecified without coma; K52.9 Noninfective gastroenteritis and colitis, unspecified; I10 Essential (primary) hypertension; K44.9 Diaphragmatic hernia without obstruction or gangrene; K42.9 Umbilical hernia without obstruction or gangrene; F19.10 Other psychoactive substance abuse, uncomplicated
CPT/HCPCS: 31720; 36415; 36430; 36556; 36569; 36600; 51702; 70450; 71045; 74176; 76705; 80047; 80053; 80202; 81001; 82042; 82105; 82140; 82310; 82330; 82375; 82550; 82553; 82803; 82945; 82947; 83605; 83615; 83735; 83880; 83986; 84100; 84157; 84484; 85014; 85018; 85025; 85049; 85384; 85610; 85730; 86704; 86708; 86803; 86850; 86900; 86901; 86923; 87040; 87070; 87075; 87205; 87340; 88108; 89051; 93005; 93010; 93306; 94003; 94640; 94762; 96361-59; 96365-59; 96375-59; 99285-25; C1751; C9113; G0480; J0171; J0696; J1430; J2250; J2354; J2405; J2543; J2704; J3010; J3370; J3430; J3475; J3480; J7030; J7040; J7050; J7060; J7070; P9012; P9016; P9035; P9059; Q9968; U0002